=== PATIENT | female | born 1990 ===

== ENCOUNTER → 2017-12-20 | Outpatient (CLI) | payer OTHER ==
[~2017-12-20] MED LIST: FAMO20 PO; IBUP800 PO; LABE200 PO; ONDA8 PO; OXYACE5T PO; PROM25 PO
== END ==
LOC: LAB 14:42 → LAB SHORT 14:42
DX: A49.02 Methicillin resistant Staphylococcus aureus infection, unspecified site (principal)
CPT/HCPCS: 87081

== ENCOUNTER 2017-12-25 14:11 | Inpatient (IN) | payer OTHER ==
[~2017-12-25] VITALS: Ht 160 cm; Wt 117.5 kg
[2018-02-25 13:02] LABS: BASOPHILS ABSOLUTE AUTO 0.04 K/mm3 (0.00-0.23); BASOPHILS PERCENT AUTO 0 % (0-2); EOSINOPHILS ABSOLUTE AUTO 0.13 K/mm3 (0.00-0.68); EOSINOPHILS PERCENT AUTO 1 % (0-6); Hematocrit 35.1 % (33.0-51.0); Hemoglobin 11.7 g/dL (11.5-16.0); IMMATURE GRAN ABSOLUTE AUTO 0.46 K/mm3 (0.00-0.10); IMMATURE GRAN PERCENT AUTO 3 % (0-1); LYMPHOCYTES ABSOLUTE AUTO 2.45 K/mm3 (0.84-5.20); LYMPHOCYTES PERCENT AUTO 15 % (21-46); MONOCYTES ABSOLUTE AUTO 1.13 K/mm3 (0.16-1.47); MONOCYTES PERCENT AUTO 7 % (4-13); Mean Corpuscular HGB 28.9 pg (26.0-34.0); Mean Corpuscular HGB Conc 33.3 g/dL (31.5-36.5); Mean Corpuscular Volume 87 fL (80-100); Mean Platelet Volume 10.8 fL (9.1-12.4); NEUTROPHILS ABSOLUTE AUTO 12.05 K/mm3 (1.96-9.15); NEUTROPHILS PERCENT AUTO 74 % (41-73); Platelet Count 385 K/mm3 (150-400); RDW Coefficient Variation 14.6 % (11.7-14.2); RDW Standard Deviation 46.6 fL (35.1-46.3); Red Blood Cell Count 4.05 M/mm3 (3.80-5.20); White Blood Cell Count 16.26 K/mm3 (4.00-11.30)
[2018-02-26 08:42] LABS: PCO2 Cord - Arterial 32.8 mmHg (40-50); pH Cord - Arterial 7.29 (7.28-7.35)
[2018-02-26 08:43] LABS: PO2 Cord - Arterial < 18.0 mmHg (16-20)
[2018-02-26 08:46] LABS: PCO2 Cord - Venous 41.9 mmHg (40-50); PO2 Cord - Venous 24.2 mmHg (28-32); pH Umbilical Cord - Venous 7.32 (7.26-7.35)
[2018-02-26 13:41] LABS: Hematocrit 30.2 % (33.0-51.0); Hemoglobin 10.1 g/dL (11.5-16.0); Mean Corpuscular HGB 29.6 pg (26.0-34.0); Mean Corpuscular HGB Conc 33.4 g/dL (31.5-36.5); Mean Corpuscular Volume 89 fL (80-100); Platelet Count 371 K/mm3 (150-400); RDW Coefficient Variation 14.7 % (11.7-14.2); RDW Standard Deviation 47.3 fL (35.1-46.3); Red Blood Cell Count 3.41 M/mm3 (3.80-5.20); White Blood Cell Count 27.05 K/mm3 (4.00-11.30)
[2018-02-26 13:47] LABS: Alanine Aminotransfer (ALT/SGP 12 U/L (12-78); Albumin, Blood 2.2 g/dL (3.4-5.0); Albumin/Globulin Ratio 0.6 (0.8-1.8); Alk Phos 176 U/L (50-136); Anion Gap 11 mmol/L (6-16); Aspartate Aminotrans (AST/SGOT 27 U/L (12-37); Bilirubin, Total 0.5 mg/dL (0.1-1.0); Blood Urea Nitrogen 5 mg/dL (8-24); Bun/Creatinine Ratio 11.4 (12.0-20.0); CO2, Blood 21 mmol/L (21-32); Calcium, Blood 8.4 mg/dL (8.5-10.1); Chloride, Blood 108 mmol/L (98-108); Creatinine, Blood 0.44 mg/dL (0.40-1.00); Globulin, Blood 3.7 g/dL (2.2-4.0); Glomerular Filtration Rate >60 (60-); Glucose, Blood 105 mg/dL (70-99); Sodium, Blood 140 mmol/L (136-145); Total Protein, Blood 5.9 g/dL (6.4-8.2)
[2018-02-26 18:06] LABS: Hematocrit 25.9 % (33.0-51.0); Hemoglobin 8.9 g/dL (11.5-16.0); Mean Corpuscular HGB 29.9 pg (26.0-34.0); Mean Corpuscular HGB Conc 34.4 g/dL (31.5-36.5); Mean Corpuscular Volume 87 fL (80-100); Mean Platelet Volume 11.1 fL (9.1-12.4); Platelet Count 367 K/mm3 (150-400); RDW Coefficient Variation 14.6 % (11.7-14.2); RDW Standard Deviation 46.5 fL (35.1-46.3); Red Blood Cell Count 2.98 M/mm3 (3.80-5.20); White Blood Cell Count 25.67 K/mm3 (4.00-11.30)
[2018-02-27 05:58] LABS: Hematocrit 23.1 % (33.0-51.0); Hemoglobin 7.8 g/dL (11.5-16.0); Mean Corpuscular HGB 29.3 pg (26.0-34.0); Mean Corpuscular HGB Conc 33.8 g/dL (31.5-36.5); Mean Corpuscular Volume 87 fL (80-100); Mean Platelet Volume 10.7 fL (9.1-12.4); Platelet Count 312 K/mm3 (150-400); RDW Coefficient Variation 14.7 % (11.7-14.2); RDW Standard Deviation 46.9 fL (35.1-46.3); Red Blood Cell Count 2.66 M/mm3 (3.80-5.20); White Blood Cell Count 20.16 K/mm3 (4.00-11.30)
[2018-02-28 05:36] LABS: BASOPHILS ABSOLUTE AUTO 0.04 K/mm3 (0.00-0.23); BASOPHILS PERCENT AUTO 0 % (0-2); EOSINOPHILS ABSOLUTE AUTO 0.17 K/mm3 (0.00-0.68); EOSINOPHILS PERCENT AUTO 1 % (0-6); Hematocrit 30.4 % (33.0-51.0); Hemoglobin 10.3 g/dL (11.5-16.0); IMMATURE GRAN ABSOLUTE AUTO 0.36 K/mm3 (0.00-0.10); IMMATURE GRAN PERCENT AUTO 3 % (0-1); LYMPHOCYTES ABSOLUTE AUTO 3.03 K/mm3 (0.84-5.20); LYMPHOCYTES PERCENT AUTO 22 % (21-46); MONOCYTES ABSOLUTE AUTO 1.17 K/mm3 (0.16-1.47); MONOCYTES PERCENT AUTO 8 % (4-13); Mean Corpuscular HGB 29.3 pg (26.0-34.0); Mean Corpuscular HGB Conc 33.9 g/dL (31.5-36.5); Mean Corpuscular Volume 86 fL (80-100); Mean Platelet Volume 10.4 fL (9.1-12.4); NEUTROPHILS ABSOLUTE AUTO 9.08 K/mm3 (1.96-9.15); NEUTROPHILS PERCENT AUTO 66 % (41-73); Platelet Count 343 K/mm3 (150-400); RDW Coefficient Variation 15.3 % (11.7-14.2); Red Blood Cell Count 3.52 M/mm3 (3.80-5.20); White Blood Cell Count 13.85 K/mm3 (4.00-11.30)
[2018-02-28] MEDS ORDERED: IBUP800 (10:17)
[2018-02-28] MEDS ORDERED: LABE100 PO (10:17)
[2018-02-28] MEDS ORDERED: Percocet 5-3251 EACH (10:17)
== END 2018-02-28 16:27 | disposition home or self-care (01) | DRG 765 ==
LOC: BC 02-26 05:52
PROVIDERS: Nurse Practitioner Obstetrics & Gynecology; Obstetrics & Gynecology
PROC: 10D00Z1 Extraction of Products of Conception, Low, Open Approach (ICD-10-PCS; principal; 2018-02-26 07:30)
PROC: 0UT70ZZ Resection of Bilateral Fallopian Tubes, Open Approach (ICD-10-PCS; 2018-02-26 07:30)
PROC: 30233N1 Transfusion of Nonautologous Red Blood Cells into Peripheral Vein, Percutaneous Approach (ICD-10-PCS; 2018-02-27)
DX: O34.211 Maternal care for low transverse scar from previous cesarean delivery (principal); O72.1 Other immediate postpartum hemorrhage; Z30.2 Encounter for sterilization; N85.8 Other specified noninflammatory disorders of uterus; Z3A.41 41 weeks gestation of pregnancy; Z37.0 Single live birth
CPT/HCPCS: 36415; 36430; 80053; 82803; 85025; 85027; 86850; 86900; 86901; 86923; 88302; J0690; J1100; J1885; J2370; J2405; J2590; J2765; J3010; J7030; J7120; P9016

== ENCOUNTER → 2018-01-24 | Outpatient (CLI) | payer OTHER | END | disposition home or self-care (01) | LOC: LAB SHORT 12:06 → LAB 12:06 | DX: Z09 Encounter for follow-up examination after completed treatment for conditions other than malignant neoplasm (principal); Z86.14 Personal history of Methicillin resistant Staphylococcus aureus infection | CPT/HCPCS: 87081 ==

== ENCOUNTER → 2022-11-23 | Outpatient (CLI) | payer OTHER ==
[~2022-11-23] MED LIST changes: +IBUP800; +LABE100 PO; +Percocet 5-3251 EACH
== END | disposition home or self-care (01) ==
LOC: LAB 16:00 → LAB SHORT 16:00
DX: R35.0 Frequency of micturition (principal)
CPT/HCPCS: 87086

== ENCOUNTER 2023-02-17 16:19 | Observation (INO) | payer OTHER ==
[~2023-02-17] VITALS: Ht 162.6 cm; Wt 85.8 kg
[2023-02-17 21:25] VITALS: BP 132/102
[2023-02-18] VITALS (19 sets, daily range): BP systolic 122–153; BP diastolic 93–113
[2023-02-18 04:28] LABS: BASOPHILS ABSOLUTE AUTO 0.03 K/mm3 (0.00-0.23); BASOPHILS PERCENT AUTO 0 % (0-2); EOSINOPHILS PERCENT AUTO 3 % (0-6); Hematocrit 36.3 % (33.0-51.0); Hemoglobin 12.6 g/dL (11.5-16.0); IMMATURE GRAN ABSOLUTE AUTO 0.02 K/mm3 (0.00-0.10); IMMATURE GRAN PERCENT AUTO 0 % (0-1); LYMPHOCYTES ABSOLUTE AUTO 2.41 K/mm3 (0.84-5.20); LYMPHOCYTES PERCENT AUTO 31 % (21-46); MONOCYTES ABSOLUTE AUTO 0.57 K/mm3 (0.16-1.47); MONOCYTES PERCENT AUTO 7 % (4-13); Mean Corpuscular HGB 29.7 pg (26.0-34.0); Mean Corpuscular HGB Conc 34.7 g/dL (31.5-36.5); Mean Corpuscular Volume 86 fL (80-100); Mean Platelet Volume 11.2 fL (9.1-12.4); NEUTROPHILS ABSOLUTE AUTO 4.46 K/mm3 (1.96-9.15); NEUTROPHILS PERCENT AUTO 58 % (41-73); Platelet Count 320 K/mm3 (150-400); RDW Coefficient Variation 12.5 % (11.7-14.2); RDW Standard Deviation 38.6 fL (35.1-46.3); Red Blood Cell Count 4.24 M/mm3 (3.80-5.20); White Blood Cell Count 7.69 K/mm3 (4.00-11.30)
[2023-02-18 04:55] LABS: Albumin, Blood 3.1 g/dL (3.4-5.0); Albumin/Globulin Ratio 0.9 (0.8-1.8); Bilirubin, Total 0.9 mg/dL (0.1-1.0); Bun/Creatinine Ratio 5.1 (12.0-20.0); Calcium, Blood 8.6 mg/dL (8.5-10.1); Creatinine, Blood 0.79 mg/dL (0.40-1.00); Globulin, Blood 3.3 g/dL (2.2-4.0); Potassium, Blood 3.6 mmol/L (3.5-5.5); Total Protein, Blood 6.4 g/dL (6.4-8.2)
--- NOTE | 2023-02-18 07:35 | NUR ---
SHIFT SUMMARY REPORT FROM JANINE ED RN- PT ASSESSED FOR IGNITION RISK- PT BROUGHT TO ROOM VIA AMBULATORY- PT DENIES PAIN AND NAUSEA- PT SLEPT T/O NIGHT- IV INFUSING WITHOUT PROBLEMS- BED LOW POSITION, CALL LIGHT WITHIN REACH- 0500 SPOKE WITH RIO DELACRUZ RE: INDOCYANINE GREEN INJECTION- THE MEDICATION BEING HELD IN PHARMACY FOR SURGERY TO GIVE- 0640 CALL FROM SURGERY NURSE ASKING THAT THE INDOCYANINE GREEN BE GIVEN- SPOKE WITH PHARMACIST AND MEDICATION BEING SENT
--- NOTE | 2023-02-18 11:00 | NUR ---
LATE ENTRY 929: PT TO OR VIA [facility]. UPON INQUIRY PT STATES SHE HAS BILAT METAL NIPPLE RINGS. WITH SOME EFFORT AT EDUCATION & CONVINCING PT, SHE REMOVED THEM. PLACED RINGS IN A BAG & LABELED. PLACED THEM IN HER PERSONAL BELONGINGS BAG PER HER REQUEST. EDUCATED PT ON RISK OF FIRE WHILE IN SURGERY IF PTS HAVE METAL PIERCINGS OR JEWLERY ON OR IN THEIR BODIES. ULTIMATELY PT VERBALIZED UNDERSTANDING.
--- NOTE | 2023-02-18 14:55 | NUR ---
LATE ENTRY 1445: PT RETURNED FROM PACU AFTER LAP ETHAN. PLACED IN BED AND MADE COMFORTABLE. VSS. PT IS GROGGY THOUGH AROUSABLE. 5 ABD PUNC OPSITES C/D/I. NO DRNG NOTED. WILL CONTINUE TO MONITOR PER PROTOCOL.
--- NOTE | 2023-02-18 19:40 | NUR ---
SHIFT SUMMARY PT HAS RESTED QUIETLY WITH EYES CLOSED, VSS. MEDICATED FOR PAIN PER EMAR WITH GOOD RELIEF STATED BY PT. IS INDEPENDENT IN THE ROOM FOR RESTROOM USE. ABD OPSITES REMAIN C/D/I. DENIES NAUSEA, APPETITE OK FOR DINNER. ANTICIPATES DC HOME TOMORROW.
--- NOTE | 2023-02-19 06:44 | NUR ---
SHIFT SUMMARY POD 1, LAP ETHAN R/T CHOLECYSTITIS. A&OX4, INDEPENDANT. PT REPORTS PAIN T/O ABD AND MORE SO TO LLQ. ORAL PAIN MEDS USED X2 W/ RELIEF, NAUSEA MEDS X1 EARLY IN SHIFT. PT PLANS FOR DISCHARGE TODAY BUT REPORTS INCREASE IN PAIN THIS MORNING. PT REPORTS FEUDING W/ BOYFRIEND AND VERY IRRITABLE CURRENTLY. NO ACUTE CHANGES THIS SHIFT, CALL LIGHT W/IN REACH.
--- NOTE | 2023-02-19 10:43 | NUR ---
DC HOME WRITTEN & VERBAL DC INSTRUCTIONS GIVEN TO PT, GOOD UNDERSTANDING VERBALIZED BY PT. SCRIPT FOR PAIN MEDS GIVEN TO PT, COPY OF SCRIPT ON CHART. PIV DC'D WITH CATH TIP INTACT, NO REDNESS OR SWELLING NOTED. PT TO PV VIA W/C W/ALL PERSONAL BELONGINGS.
== END 2023-02-19 10:50 | disposition home or self-care (01) ==
LOC: ER 16:19 → MEDS 16:20 → ENPENDDIS 02-19 09:20 → MEDS 02-19 10:50
PROVIDERS: ADMIT Surgery
PROC: 0FT44ZZ Resection of Gallbladder, Percutaneous Endoscopic Approach (ICD-10-PCS; principal; 2023-02-17)
PROC: 8E0W4CZ Robotic Assisted Procedure of Trunk Region, Percutaneous Endoscopic Approach (ICD-10-PCS; 2023-02-17)
DX: K80.12 Calculus of gallbladder with acute and chronic cholecystitis without obstruction (principal); E66.9 Obesity, unspecified; K42.9 Umbilical hernia without obstruction or gangrene; Z87.891 Personal history of nicotine dependence
CPT/HCPCS: 36415; 74177; 76705; 80053; 83690; 85025; 88304; 94760; 96365-59; 96375; 96376; 99285-25; A9270; G0378; J0780; J1100; J1170; J1790; J1885; J2405; J2543; J2704; J3010; J7050; J7120; Q9967

== ENCOUNTER → 2023-09-08 | Outpatient (CLI) | payer OTHER ==
[2023-09-08 16:17] LABS: Source, Urine Voided
[2023-09-08 18:32] LABS: Bacteria Few /hpf; White Blood Cells, Urine 0-2 /hpf (0-5)
[2023-09-08 18:33] LABS: Squamous Epithelial Cells Few /hpf (Few)
[2023-09-13 09:19] LABS: APTIMA MEDIA TYPE Urine; C. TRACHOMATIS BY TMA Positive (Negative); N. GONORRHOEAE BY TMA Negative (Negative); SPECIMEN SOURCE Urine
== END ==
LOC: LAB 16:15 → LAB SHORT 16:15
PROVIDERS: Physician Assistant
DX: N39.0 Urinary tract infection, site not specified (principal); Z11.3 Encounter for screening for infections with a predominantly sexual mode of transmission
CPT/HCPCS: 81015; 87086; 87491; 87591

== ENCOUNTER → 2024-01-30 | Outpatient (CLI) | payer OTHER | END | disposition home or self-care (01) | LOC: LAB 15:00 → LAB SHORT 15:00 | DX: N39.0 Urinary tract infection, site not specified (principal) | CPT/HCPCS: 87086 ==